=== PATIENT | male | born 1975 | race African-American/Black ===

== ENCOUNTER 2018-12-23 15:21 | Inpatient (IN) | payer OTHER ==
[2018-12-23 21:13] VITALS: BMI 25.0
--- NOTE | 2018-12-23 21:52 | HP ---
CIWA Score - Admission Criteria OASAS Guidelines: Admission for Medically Managed Detox: Requires at least one of the followin. CIWA greater than 12 2. Seizures within the past 24 hours 3. Delirium tremens within the past 24 hours 4. Hallucinations within the past 24 hours 5. Acute intervention needed for co occurring medical disorder 6. Acute intervention needed for co occurring psychiatric disorder 7. Severe withdrawal that cannot be handled at a lower level of care (continued vomiting, continued diarrhea, abnormal vital signs) requiring intravenous medication and/or fluids 8. Admission ROS S - HPI Chief Complaint: Seeking admission to Rehab Allergies/Adverse Reactions: Allergies Allergy/AdvReac Type Severity Reaction Status Date / Time No Known Allergies Allergy Verified 12/23/18 21:01 History of Present Illness: 43 years old male with a history of Percocet, cocaine and marijuana dependence is seeking admission to Rehab. This is his first inpatient admission to Rehab. Patient denies past medical history and denies suicidal ideation at this time. Exam Limitations: No Limitations - Ebola screening Have you traveled outside of the country in the last 21 days: No (N) Have you had contact with anyone from an Ebola affected area: No Do you have a fever: No - Review of Systems Constitutional: No Symptoms Reported EENT: reports: No Symptoms Reported Respiratory: reports: No Symptoms reported Cardiac: reports: No Symptoms Reported GI: reports: No Symptoms Reported : reports: No Symptoms Reported Musculoskeletal: reports: No Symptoms Reported Integumentary: reports: No Symptoms Reported Neuro: reports: No Symptoms reported Endocrine: reports: No Symptoms Reported Hematology: reports: No Symptoms Reported Psychiatric: reports: Mood/Affect Appropiate, Orientated x3 Other Systems: Reviewed and Negative Patient History - Patient Medical History Hx Anemia: No Hx Asthma: No Hx Chronic Obstructive Pulmonary Disease (COPD): No Hx Cancer: No Hx Cardiac Disorders: No Hx Congestive Heart Failure: No Hx Hypertension: No Hx Hypercholesterolemia: No Hx Pacemaker: No HX Cerebrovascular Accident: No Hx Seizures: No Hx Dementia: No Hx Diabetes: No Hx Gastrointestinal Disorders: No Hx Liver Disease: No Hx Genitourinary Disorders: No Hx Sexually Transmitted Disorders: No Hx Renal Disease (ESRD): No Hx Thyroid Disease: No Hx Human Immunodeficiency Virus (HIV): No (Negative December 2018) Hx Hepatitis C: No Hx Depression: Yes (Zoloft) Hx Suicide Attempt: No (Denies suicidl ideation at this time) Hx Bipolar Disorder: Yes (Zoloft) Other Medical History: Anxiety - Xanax - Patient Surgical History Past Surgical History: No - PPD History Previous Implant?: No Documented Results: Negative w/o proof Implanted On Prior R Admission?: Yes PPD to be Administered?: Yes - Reproductive History Patient is a Female of Child Bearing Age (11 -55 yrs old): No (Male) - Smoking Cessation Smoking history: Current every day smoker Have you smoked in the past 12 months: Yes Aproximately how many cigarettes per day: 10 Hx Chewing Tobacco Use: No Initiated information on smoking cessation: Yes 'Breaking Loose' booklet given: 12/23/18 - Substance & Tx. History Hx Alcohol Use: No Hx Substance Use: Yes Substance Use Type: Cocaine, Opiates Hx Substance Use Treatment: No ([id number]) - Substances abused Cocaine Substance route: Inhalation Frequency: 1-3 times last 30 days Amount used: 2-3 grams Age of first use: 22 Date of last use: 12/16/18 Marijuana/Hashish Substance route: Smoking Frequency: Daily Amount used: 4-5 blunts daily Age of first use: 17 Date of last use: 12/22/18 Other Other (specify): percocet Substance route: Oral Frequency: 1-2 times per week Amount used: 3-4 pills when used Age of first use: 31 Date of last use: 12/19/18 Family Disease History - Family Disease History Family History: Denies Admission Physical Exam [facility] - Vital Signs Vital Signs: Vital Signs - 24 hr 12/23/18 20:56 Temperature 98.4 F Pulse Rate 81 Respiratory 20 Rate Blood Pressure 140/78 - Physical General Appearance: Yes: No Apparent Distress, Nourished, Appropriately Dressed HEENTM: Yes: Normal ENT Inspection, Normocephalic, Normal Voice, [place]ON[place] Respiratory: Yes: Lungs Clear, Normal Breath Sounds, No Respiratory Distress Neck: Yes: Within Normal Limits Breast: Yes: Breast Exam Deferred Cardiology: Yes: Regular Rhythm, Regular Rate Abdominal: Yes: Normal Bowel Sounds, Soft Genitourinary: Yes: Within Normal Limits Back: Yes: Normal Inspection Musculoskeletal: Yes: Within Normal Limits Extremities: Yes: Normal Inspection 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 intact, Alert, Normal Mood/Affect Integumentary: Yes: Warm Lymphatic: Yes: Within Normal Limits - Diagnostic (1) Nicotine dependence Current Visit: Yes Status: Chronic Qualifiers: Nicotine product type: cigarettes Substance use status: uncomplicated Qualified Code(s): F17.210 - Nicotine dependence, cigarettes, uncomplicated (2) Cocaine dependence Current Visit: Yes Status: Chronic Qualifiers: Substance use status: uncomplicated Qualified Code(s): F14.20 - Cocaine dependence, uncomplicated (3) Opioid dependence Current Visit: Yes Status: Chronic Qualifiers: Complication of substance-induced condition: uncomplicated (4) Marijuana dependence Current Visit: Yes Status: Chronic Cleared for Admission S - Detox or Rehab [facility] Level of Care: Observation Bed Claeared for Rehab Admission: Yes Breathalyzer - Breathalyzer Breathalyzer: 0 Urine Drug Screen - Test Device Lot number: [id number] Expiration date: 11/08/19 - Control Is test valid?: Yes - Results Drug screen NEGATIVE: No Urine drug screen results: THC-Marijuana Inpatient Rehab Admission - Rehab Decision to Admit Inpatient rehab admission?: Yes - Initial Determination Are CD services needed?: No Free of communicable disease: Yes Not in need of hospitalization: Yes - Rehab Admission Criteria Previous failed treatment: Yes Poor recovery environment: Yes Comorbidities: Yes Lacks judgement: No Patient is meeting Inpatient Rehab admission criteria:: Yes
[2018-12-23] MEDS ORDERED: MENTHOL/PHENOL 1 EACH UD MM PRN (22:03)
[2018-12-23] MEDS ORDERED: MAGNESIUM HYDROX 2400MG/30ML ORAL SUSPENSION 30 ML CUP PO PRN (22:03)
[2018-12-23] MEDS ORDERED: IBUPROFEN 400 MG TABLET (FP) PO PRN (22:03)
[2018-12-23] MEDS ORDERED: LOPERAMIDE HCL 2 MG CAPSULE PO PRN (22:03)
[2018-12-23] MEDS ORDERED: ACETAMINOPHEN 325 MG TABLET (FP) PO PRN (22:03)
[2018-12-23] MEDS ORDERED: guaiFENesin 200 MG/10 ML 10 ML UNIT-DOSE CUPS PO PRN (22:03)
[2018-12-23] MEDS ORDERED: P-EPHED 60MG/TRIPROLIDI 2.5MG TABLET PO PRN (22:03)
[2018-12-23] MEDS ORDERED: MAGNESIUM CITRATE 300 ML BOTTLE PO PRN (22:03)
[2018-12-23] MEDS ORDERED: TUBERCULIN PPD 5 TU/0.1ML VIAL ID ONE (22:51)
[2018-12-23] MEDS: MELATONIN 5 MG TABLETS PO PRN (23:21)
[2018-12-24] MEDS: NICOTINE 14 MG/24 HOURS TOPICAL PATCH TD SCH (10:10)
[2018-12-24] MEDS: PRENATAL VITAMINS W/ FOLIC ACID TABLET (FP) PO SCH (10:10)
[2018-12-24 12:32] LABS: ALBUMIN 3.7 g/dl (3.4-5.0); BILIRUBIN,TOTAL 0.5 mg/dL (0.2-1); CALCIUM 9.1 mg/dL (8.5-10.1); CREATININE 1.1 mg/dL (0.55-1.3); POTASSIUM 4.4 mmol/L (3.5-5.1); TOT PROT 6.6 g/dl (6.4-8.2)
[2018-12-24 12:36] LABS: PH,URINE 8.5 (5.0-8.0); URINE APPEARANCE CLEAR; URINE BILIRUBIN NEGATIVE (NEGATIVE); URINE COLOR YELLOW; URINE GLUCOSE (UA) NEGATIVE (NEGATIVE); URINE KETONE NEGATIVE (NEGATIVE); URINE LEUK ESTERASE NEGATIVE (NEGATIVE); URINE NITRITE NEGATIVE (NEGATIVE); URINE PROTEIN NEGATIVE (NEGATIVE)
[2018-12-24 13:09] LABS: HEMOGLOBIN 12.5 GM/dL (11.7-16.9); MCH 32.8 pg (25.7-33.7); MCHC 32.9 g/dl (32.0-35.9); MEAN CELL VOLUME 99.7 fl (80-96); MEAN PLT VOLUME 8.4 fl (7.5-11.1); PLATELET COUNT 281 K/MM3 (134-434); RBC 3.82 M/mm3 (4.00-5.60); RDW 13.4 % (11.9-15.9); WHITE BLOOD COUNT 6.1 K/mm3 (4.0-10.0)
--- NOTE | 2018-12-24 14:20 | CONSULT ---
[facility] Psychiatric Consult - Data Date of interview: 12/24/18 Admission source: [facility] Identifying data: Patient is a 43 year old single male, father of three, unemployed, domiciled, and is supported by food stamps. This is patient's first admission to rehab at [facility]. Patient admitted to for opiate, marijuana, and cocaine dependence. Substance Abuse History: - Smoking Cessation. Smoking history: Current every day smoker. Have you smoked in the past 12 months: Yes. Aproximately how many cigarettes per day: 10. Hx Chewing Tobacco Use: No. Initiated information on smoking cessation: Yes. 'Breaking Loose' booklet given: 12/23/18. - Substance & Tx. History. Hx Alcohol Use: No. Hx Substance Use: Yes. Substance Use Type : Cocaine, Opiates. Hx Substance Use Treatment: No ([id number]). - Substances abused. Cocaine. Substance route: Inhalation. Frequency: 1-3 times last 30 days. Amount used: 2-3 grams. Age of first use: 22. Date of last use: 03/29. Marijuana/Hashish. Substance route: Smoking. Frequency: Daily. Amount used: 4-5 blunts daily. Age of first use: 17. Date of last use: . Other. Other (specify): percocet. Substance route: Oral. Frequency: 1 -2 times per week. Amount used: 3-4 pills when used. Age of first use: 31. Date of last use: 12/19/18 Medical History: Unremarkable Psychiatric History: Patient's first psychiatric contact was in October of 2018 after he was encouraged by his therapist to see a psychiatrist due to psychosocial factors of being a single parent and moving to [facility] with his two children from [facility]. He was started on lexapro 20mg and xanax 0.5mg as needed. Mr. Camilo discontinued lexapro after one month due to the medication being ineffective and subsequently admitted himself to [facility] psychiatric unit after reporting amotivaton, hopelessness, and continously using illicit substances. He was admitted for five days and prescribed zoloft 75mg. He continues to accept zoloft today. He denies current outpatient psychiatric care but states that he plans on returning to see his previous psychiatrist that is located in [place]. At present he reports stable mood. Physical/Sexual Abuse/Trauma History: denies. Mental Status Exam - Mental Status Exam Alert and Oriented to: Time, Place, Person Cognitive Function: Good Patient Appearance: Well Groomed Mood: Euthymic Affect: Appropriate Patient Behavior: Cooperative Speech Pattern: Appropriate Voice Loudness: Normal Thought Process: Goal Oriented Thought Disorder: Not Present Hallucinations: Denies Suicidal Ideation: Denies Homicidal Ideation: Denies Insight/Judgement: Poor Sleep: Poorly Appetite: Fair Muscle strength/Tone: Normal Gait/Station: Normal Psychiatric Findings - Problem List ([place] 1, 2,3) (1) Depressive disorder Current Visit: Yes Status: Chronic (2) Cocaine dependence Current Visit: Yes Status: Chronic Qualifiers: Substance use status: uncomplicated Qualified Code(s): F14.20 - Cocaine dependence, uncomplicated (3) Marijuana dependence Current Visit: Yes Status: Chronic (4) Nicotine dependence Current Visit: Yes Status: Chronic Qualifiers: Nicotine product type: cigarettes Substance use status: uncomplicated Qualified Code(s): F17.210 - Nicotine dependence, cigarettes, uncomplicated (5) Opioid dependence Current Visit: Yes Status: Chronic Qualifiers: Complication of substance-induced condition: uncomplicated - Initial Treatment Plan Initial Treatment Plan: Psychoeducation provided. Rehab in progress. Will order Zoloft 75mg daily. Benefits and side effects discussed. Verbal consent given.
--- NOTE | 2018-12-24 14:31 | EKG ---
Test Reason : Blood Pressure : / mmHG Vent. Rate : 075 BPM Atrial Rate : 075 BPM P-R Int : 178 ms QRS Dur : 102 ms QT Int : 368 ms P-R-T Axes : 072 063 049 degrees QTc Int : 410 ms NORMAL SINUS RHYTHM NORMAL ECG NO PREVIOUS ECGS AVAILABLE Confirmed by AMBERLY LOPEZ MD ([id number]) on 12/24/2018 2:31:00 PM Referred By: Confirmed By:AMBERLY LOPEZ MD
[2018-12-24] MEDS: THIAMINE HCL 100 MG TABLET (FP) PO SCH (21:02)
[2018-12-24] MEDS: MELATONIN 5 MG TABLETS PO PRN (21:02)
[2018-12-25] MEDS: PRENATAL VITAMINS W/ FOLIC ACID TABLET (FP) PO SCH (09:58)
[2018-12-25] MEDS: NICOTINE 14 MG/24 HOURS TOPICAL PATCH TD SCH (09:58)
[2018-12-25] MEDS: SERTRALINE HCL 25 MG TABLET (FP) PO SCH (09:58)
[2018-12-25] MEDS: THIAMINE HCL 100 MG TABLET (FP) PO SCH (21:04)
[2018-12-25] MEDS: MELATONIN 5 MG TABLETS PO PRN (21:05)
[2018-12-26] MEDS: SERTRALINE HCL 25 MG TABLET (FP) PO SCH (09:37)
[2018-12-26] MEDS: PRENATAL VITAMINS W/ FOLIC ACID TABLET (FP) PO SCH (09:38)
[2018-12-26] MEDS: NICOTINE 14 MG/24 HOURS TOPICAL PATCH TD SCH (09:38)
[2018-12-26] MEDS: THIAMINE HCL 100 MG TABLET (FP) PO SCH (21:31)
[2018-12-26] MEDS: MELATONIN 5 MG TABLETS PO PRN (21:32)
[2018-12-27] MEDS: NICOTINE 14 MG/24 HOURS TOPICAL PATCH TD SCH (09:32)
[2018-12-27] MEDS: PRENATAL VITAMINS W/ FOLIC ACID TABLET (FP) PO SCH (09:32)
[2018-12-27] MEDS: NICOTINE POLACRILEX 2 MG GUM BC PRN (09:33)
[2018-12-27] MEDS: SERTRALINE HCL 25 MG TABLET (FP) PO SCH (09:33)
[2018-12-27] MEDS: THIAMINE HCL 100 MG TABLET (FP) PO SCH (21:04)
[2018-12-27] MEDS: MELATONIN 5 MG TABLETS PO PRN (21:04)
[2018-12-27] MEDS: hydrOXYzine PAMOATE 50 MG CAPSULE (FP) PO PRN (23:22)
[2018-12-28] MEDS: NICOTINE 14 MG/24 HOURS TOPICAL PATCH TD SCH (09:54)
[2018-12-28] MEDS: SERTRALINE HCL 25 MG TABLET (FP) PO SCH (09:55)
[2018-12-28] MEDS: PRENATAL VITAMINS W/ FOLIC ACID TABLET (FP) PO SCH (09:55)
[2018-12-28] MEDS: NICOTINE POLACRILEX 2 MG GUM BC PRN ×2 (09:56→19:04)
--- NOTE | 2018-12-28 14:07 | PN ---
S Progress Note Note: Patient c/o insomnia and inability to sleep x 3 nights despite Melatonin. Will order Belsoma 10mg hs prn and monitor clinically. Vital Signs Temperature 98.1 F 12/28/18 07:17 Pulse Rate 55 L 12/28/18 07:17 Respiratory Rate 18 12/28/18 07:17 Blood Pressure 128/91 12/28/18 07:17 O2 Sat by Pulse Oximetry (%)
[2018-12-28] MEDS: THIAMINE HCL 100 MG TABLET (FP) PO SCH (21:11)
[2018-12-28] MEDS: SUVOREXANT 10 MG TABLET PO PRN (21:11)
[2018-12-29] MEDS: PRENATAL VITAMINS W/ FOLIC ACID TABLET (FP) PO SCH (09:49)
[2018-12-29] MEDS: SERTRALINE HCL 25 MG TABLET (FP) PO SCH (09:49)
[2018-12-29] MEDS: NICOTINE 14 MG/24 HOURS TOPICAL PATCH TD SCH (09:49)
[2018-12-29] MEDS: SUVOREXANT 10 MG TABLET PO PRN (21:10)
[2018-12-29] MEDS: THIAMINE HCL 100 MG TABLET (FP) PO SCH (21:10)
[2018-12-30] MEDS ORDERED: PT OWN MED DRAWER 7, Y5N ONE (08:39)
[2018-12-30] MEDS: PRENATAL VITAMINS W/ FOLIC ACID TABLET (FP) PO SCH (09:43)
[2018-12-30] MEDS: SERTRALINE HCL 25 MG TABLET (FP) PO SCH (09:43)
[2018-12-30] MEDS: NICOTINE 14 MG/24 HOURS TOPICAL PATCH TD SCH (09:43)
[2018-12-30] MEDS: NICOTINE POLACRILEX 2 MG GUM BC PRN (17:15)
[2018-12-30] MEDS: SUVOREXANT 10 MG TABLET PO PRN (21:08)
[2018-12-30] MEDS: THIAMINE HCL 100 MG TABLET (FP) PO SCH (21:09)
[2018-12-31] MEDS ORDERED: PT OWN MED DRAWER 7, Y5N ONE (09:01)
[2018-12-31] MEDS: SERTRALINE HCL 25 MG TABLET (FP) PO SCH (10:10)
[2018-12-31] MEDS: NICOTINE POLACRILEX 2 MG GUM BC PRN (10:10)
[2018-12-31] MEDS: NICOTINE 14 MG/24 HOURS TOPICAL PATCH TD SCH (10:10)
[2018-12-31] MEDS: PRENATAL VITAMINS W/ FOLIC ACID TABLET (FP) PO SCH (10:10)
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
[2018-12-31] MEDS: METHYL SALICYLATE/MENTHOL OINT 30 GM TUBE TP SCH ×2 (14:05→22:10)
[2018-12-31] MEDS: METHOCARBAMOL 500 MG TABLET PO SCH ×2 (14:05→22:07)
[2018-12-31] MEDS: THIAMINE HCL 100 MG TABLET (FP) PO SCH (22:07)
[2018-12-31] MEDS: SUVOREXANT 10 MG TABLET PO PRN (22:09)
[2018-12-31] MEDS: hydrOXYzine PAMOATE 50 MG CAPSULE (FP) PO PRN (22:09)
[2019-01-01] MEDS: METHOCARBAMOL 500 MG TABLET PO SCH ×3 (06:12→21:08)
[2019-01-01] MEDS: PRENATAL VITAMINS W/ FOLIC ACID TABLET (FP) PO SCH (09:34)
[2019-01-01] MEDS: SERTRALINE HCL 25 MG TABLET (FP) PO SCH (09:34)
[2019-01-01] MEDS: NICOTINE 14 MG/24 HOURS TOPICAL PATCH TD SCH (09:34)
[2019-01-01] MEDS: METHYL SALICYLATE/MENTHOL OINT 30 GM TUBE TP SCH ×2 (09:34→21:08)
[2019-01-01] MEDS: NICOTINE POLACRILEX 2 MG GUM BC PRN (09:35)
[2019-01-01] MEDS: hydrOXYzine PAMOATE 50 MG CAPSULE (FP) PO PRN (21:08)
[2019-01-01] MEDS: THIAMINE HCL 100 MG TABLET (FP) PO SCH (21:08)
[2019-01-01] MEDS: SUVOREXANT 10 MG TABLET PO PRN (21:08)
[2019-01-02] MEDS: METHOCARBAMOL 500 MG TABLET PO SCH ×3 (06:01→22:02)
[2019-01-02] MEDS: SERTRALINE HCL 25 MG TABLET (FP) PO SCH (09:39)
[2019-01-02] MEDS: NICOTINE 14 MG/24 HOURS TOPICAL PATCH TD SCH (09:39)
[2019-01-02] MEDS: PRENATAL VITAMINS W/ FOLIC ACID TABLET (FP) PO SCH (09:39)
[2019-01-02] MEDS: NICOTINE POLACRILEX 2 MG GUM BC PRN (09:41)
[2019-01-02] MEDS: METHYL SALICYLATE/MENTHOL OINT 30 GM TUBE TP SCH ×2 (10:26→22:01)
[2019-01-02] MEDS: THIAMINE HCL 100 MG TABLET (FP) PO SCH (22:01)
[2019-01-02] MEDS: hydrOXYzine PAMOATE 50 MG CAPSULE (FP) PO PRN (22:04)
[2019-01-03] MEDS: METHOCARBAMOL 500 MG TABLET PO SCH ×3 (05:50→21:17)
[2019-01-03] MEDS: SERTRALINE HCL 25 MG TABLET (FP) PO SCH (09:42)
[2019-01-03] MEDS: NICOTINE 14 MG/24 HOURS TOPICAL PATCH TD SCH (09:42)
[2019-01-03] MEDS: PRENATAL VITAMINS W/ FOLIC ACID TABLET (FP) PO SCH (09:42)
[2019-01-03] MEDS: NICOTINE POLACRILEX 2 MG GUM BC PRN (09:45)
[2019-01-03] MEDS: METHYL SALICYLATE/MENTHOL OINT 30 GM TUBE TP SCH ×2 (09:45→22:00)
[2019-01-03] MEDS: MAG HYDROX/AL HYDROX/SIMETH 30 ML UNIT-DOSE CUP PO PRN (13:01)
[2019-01-03] MEDS: hydrOXYzine PAMOATE 50 MG CAPSULE (FP) PO PRN (21:17)
[2019-01-03] MEDS: THIAMINE HCL 100 MG TABLET (FP) PO SCH (21:17)
[2019-01-03] MEDS: SUVOREXANT 10 MG TABLET PO PRN (21:17)
[2019-01-04] MEDS: METHOCARBAMOL 500 MG TABLET PO SCH ×3 (06:05→21:38)
--- NOTE | 2019-01-04 09:08 | PN ---
[facility] Progress Note Note: Patient c/o indigestion and flatulence. Denies N/V/D and fever. PE: alert and oriented x 3 skin warm and dry GI NT, ND ext amb ad ny a/p indigestion will order pepto-bismul 30cc daily monitor clinically
[2019-01-04] MEDS: PRENATAL VITAMINS W/ FOLIC ACID TABLET (FP) PO SCH (09:29)
[2019-01-04] MEDS: BISMUTH SUBSALICYLATE 262 MG/15 ML BTL PO SCH (09:29)
[2019-01-04] MEDS: SERTRALINE HCL 25 MG TABLET (FP) PO SCH (09:30)
[2019-01-04] MEDS: METHYL SALICYLATE/MENTHOL OINT 30 GM TUBE TP SCH ×2 (09:30→21:43)
[2019-01-04] MEDS: NICOTINE 14 MG/24 HOURS TOPICAL PATCH TD SCH (09:30)
[2019-01-04] MEDS: NICOTINE POLACRILEX 2 MG GUM BC PRN (09:33)
[2019-01-04] MEDS: THIAMINE HCL 100 MG TABLET (FP) PO SCH (21:38)
[2019-01-04] MEDS: hydrOXYzine PAMOATE 50 MG CAPSULE (FP) PO PRN (21:39)
[2019-01-05] MEDS: METHOCARBAMOL 500 MG TABLET PO SCH ×3 (06:16→21:12)
[2019-01-05] MEDS: PRENATAL VITAMINS W/ FOLIC ACID TABLET (FP) PO SCH (09:39)
[2019-01-05] MEDS: SERTRALINE HCL 25 MG TABLET (FP) PO SCH (09:39)
[2019-01-05] MEDS: METHYL SALICYLATE/MENTHOL OINT 30 GM TUBE TP SCH ×2 (09:39→21:13)
[2019-01-05] MEDS: NICOTINE 14 MG/24 HOURS TOPICAL PATCH TD SCH (09:39)
[2019-01-05] MEDS: NICOTINE POLACRILEX 2 MG GUM BC PRN (09:40)
[2019-01-05] MEDS: BISMUTH SUBSALICYLATE 262 MG/15 ML BTL PO SCH (09:42)
[2019-01-05] MEDS: hydrOXYzine PAMOATE 50 MG CAPSULE (FP) PO PRN (21:12)
[2019-01-05] MEDS: THIAMINE HCL 100 MG TABLET (FP) PO SCH (21:12)
[2019-01-06] MEDS: METHOCARBAMOL 500 MG TABLET PO SCH ×3 (06:04→21:32)
[2019-01-06] MEDS: SERTRALINE HCL 25 MG TABLET (FP) PO SCH (09:44)
[2019-01-06] MEDS: NICOTINE 14 MG/24 HOURS TOPICAL PATCH TD SCH (09:44)
[2019-01-06] MEDS: PRENATAL VITAMINS W/ FOLIC ACID TABLET (FP) PO SCH (09:44)
[2019-01-06] MEDS: NICOTINE POLACRILEX 2 MG GUM BC PRN (09:46)
[2019-01-06] MEDS: BISMUTH SUBSALICYLATE 262 MG/15 ML BTL PO SCH (09:46)
[2019-01-06] MEDS: METHYL SALICYLATE/MENTHOL OINT 30 GM TUBE TP SCH ×2 (09:47→21:32)
[2019-01-06] MEDS: THIAMINE HCL 100 MG TABLET (FP) PO SCH (21:32)
[2019-01-06] MEDS: hydrOXYzine PAMOATE 50 MG CAPSULE (FP) PO PRN (21:33)
[2019-01-07] MEDS: METHOCARBAMOL 500 MG TABLET PO SCH ×3 (06:01→21:14)
[2019-01-07] MEDS: METHYL SALICYLATE/MENTHOL OINT 30 GM TUBE TP SCH ×2 (09:38→21:15)
[2019-01-07] MEDS: PRENATAL VITAMINS W/ FOLIC ACID TABLET (FP) PO SCH (09:38)
[2019-01-07] MEDS: SERTRALINE HCL 25 MG TABLET (FP) PO SCH (09:39)
[2019-01-07] MEDS: BISMUTH SUBSALICYLATE 262 MG/15 ML BTL PO SCH (09:39)
[2019-01-07] MEDS: NICOTINE 14 MG/24 HOURS TOPICAL PATCH TD SCH (09:39)
[2019-01-07] MEDS: NICOTINE POLACRILEX 2 MG GUM BC PRN (09:41)
[2019-01-07] MEDS: THIAMINE HCL 100 MG TABLET (FP) PO SCH (21:14)
[2019-01-07] MEDS: hydrOXYzine PAMOATE 50 MG CAPSULE (FP) PO PRN (21:15)
[2019-01-08] MEDS: METHOCARBAMOL 500 MG TABLET PO SCH ×3 (05:49→21:34)
[2019-01-08] MEDS: SERTRALINE HCL 25 MG TABLET (FP) PO SCH (09:40)
[2019-01-08] MEDS: NICOTINE 14 MG/24 HOURS TOPICAL PATCH TD SCH (09:40)
[2019-01-08] MEDS: PRENATAL VITAMINS W/ FOLIC ACID TABLET (FP) PO SCH (09:41)
[2019-01-08] MEDS: BISMUTH SUBSALICYLATE 262 MG/15 ML BTL PO SCH (09:41)
[2019-01-08] MEDS: METHYL SALICYLATE/MENTHOL OINT 30 GM TUBE TP SCH ×2 (09:43→21:35)
[2019-01-08] MEDS: THIAMINE HCL 100 MG TABLET (FP) PO SCH (21:34)
[2019-01-08] MEDS: hydrOXYzine PAMOATE 50 MG CAPSULE (FP) PO PRN (21:34)
[2019-01-09] MEDS: METHOCARBAMOL 500 MG TABLET PO SCH ×3 (06:48→21:13)
[2019-01-09] MEDS: PRENATAL VITAMINS W/ FOLIC ACID TABLET (FP) PO SCH (09:26)
[2019-01-09] MEDS: SERTRALINE HCL 25 MG TABLET (FP) PO SCH (09:26)
[2019-01-09] MEDS: NICOTINE 14 MG/24 HOURS TOPICAL PATCH TD SCH (09:27)
[2019-01-09] MEDS: METHYL SALICYLATE/MENTHOL OINT 30 GM TUBE TP SCH ×2 (09:27→21:13)
[2019-01-09] MEDS: NICOTINE POLACRILEX 2 MG GUM BC PRN ×2 (09:28→22:39)
[2019-01-09] MEDS: BISMUTH SUBSALICYLATE 262 MG/15 ML BTL PO SCH (10:11)
[2019-01-09] MEDS: MAG HYDROX/AL HYDROX/SIMETH 30 ML UNIT-DOSE CUP PO PRN (15:12)
[2019-01-09] MEDS: THIAMINE HCL 100 MG TABLET (FP) PO SCH (21:13)
[2019-01-10] MEDS: METHOCARBAMOL 500 MG TABLET PO SCH ×3 (06:13→21:35)
[2019-01-10] MEDS: PRENATAL VITAMINS W/ FOLIC ACID TABLET (FP) PO SCH (09:39)
[2019-01-10] MEDS: SERTRALINE HCL 25 MG TABLET (FP) PO SCH (09:39)
[2019-01-10] MEDS: BISMUTH SUBSALICYLATE 262 MG/15 ML BTL PO SCH (09:39)
[2019-01-10] MEDS: NICOTINE 14 MG/24 HOURS TOPICAL PATCH TD SCH (09:39)
[2019-01-10] MEDS: METHYL SALICYLATE/MENTHOL OINT 30 GM TUBE TP SCH ×2 (09:40→21:39)
[2019-01-10] MEDS: NICOTINE POLACRILEX 2 MG GUM BC PRN (19:45)
[2019-01-10] MEDS: THIAMINE HCL 100 MG TABLET (FP) PO SCH (21:35)
[2019-01-10] MEDS: hydrOXYzine PAMOATE 50 MG CAPSULE (FP) PO PRN (21:36)
[2019-01-11] MEDS: METHOCARBAMOL 500 MG TABLET PO SCH ×3 (06:13→21:03)
[2019-01-11] MEDS: PRENATAL VITAMINS W/ FOLIC ACID TABLET (FP) PO SCH (09:36)
[2019-01-11] MEDS: NICOTINE 14 MG/24 HOURS TOPICAL PATCH TD SCH (09:36)
[2019-01-11] MEDS: SERTRALINE HCL 25 MG TABLET (FP) PO SCH (09:36)
[2019-01-11] MEDS: BISMUTH SUBSALICYLATE 262 MG/15 ML BTL PO SCH (09:37)
[2019-01-11] MEDS: METHYL SALICYLATE/MENTHOL OINT 30 GM TUBE TP SCH ×2 (09:37→21:03)
[2019-01-11] MEDS: THIAMINE HCL 100 MG TABLET (FP) PO SCH (21:02)
[2019-01-11] MEDS: hydrOXYzine PAMOATE 50 MG CAPSULE (FP) PO PRN (21:03)
[2019-01-12] MEDS: METHOCARBAMOL 500 MG TABLET PO SCH ×3 (06:10→21:52)
[2019-01-12] MEDS: PRENATAL VITAMINS W/ FOLIC ACID TABLET (FP) PO SCH (09:40)
[2019-01-12] MEDS: SERTRALINE HCL 25 MG TABLET (FP) PO SCH (09:41)
[2019-01-12] MEDS: NICOTINE 14 MG/24 HOURS TOPICAL PATCH TD SCH (09:41)
[2019-01-12] MEDS: BISMUTH SUBSALICYLATE 262 MG/15 ML BTL PO SCH (09:41)
[2019-01-12] MEDS: NICOTINE POLACRILEX 2 MG GUM BC PRN (09:41)
[2019-01-12] MEDS: METHYL SALICYLATE/MENTHOL OINT 30 GM TUBE TP SCH ×2 (09:41→21:53)
--- NOTE | 2019-01-12 09:41 | PN ---
[facility] Progress Note (SOAP) Subjective: Patient to be discharged tomorrow. Objective: A+O x3, no neurological deficits noted, heart sounds regular, lungs clear, abd soft, non-tender, non-distended, +BS. 01/12/19 09:39 CBC, BMP 12/24/18 08:35 12/24/18 08:35 Vital Signs (72 hours) 01/10/19 01/10/19 01/10/19 00:30 03:30 06:51 Temperature 97.8 F Pulse Rate 66 Respiratory 18 18 18 Rate Blood Pressure 131/89 01/11/19 01/11/19 01/11/19 00:30 03:30 06:35 Temperature 98.2 F Pulse Rate 75 Respiratory 18 18 18 Rate Blood Pressure 142/88 01/12/19 01/12/19 01/12/19 00:30 03:30 06:24 Temperature 97.9 F Pulse Rate 64 Respiratory 18 18 18 Rate Blood Pressure 130/91 Assessment: Medically stable for discharge at this time. Discharge dx: Opioid dependence Cocaine Dependence Marijuana dependence 01/12/19 09:39 Plan: Patient will receive aftercare at [facility]. Receives medical care from a provider in [place], at this time patient does not remember the name. Patient does not need medications transcribed to pharmacy.
--- NOTE | 2019-01-12 11:46 | PN ---
S Progress Note Note: Patient is scheduled for discharge tomorrow. Script for 30 days supply of Zoloft 75 mg/day will be electronically transmitted to [facility] at [address] [place] [address], [place] [address]
[2019-01-12] MEDS: hydrOXYzine PAMOATE 50 MG CAPSULE (FP) PO PRN (21:52)
[2019-01-12] MEDS: THIAMINE HCL 100 MG TABLET (FP) PO SCH (21:52)
[2019-01-13] MEDS: METHOCARBAMOL 500 MG TABLET PO SCH (06:04)
[2019-01-13 06:17] VITALS: BP 142/86; PULSE 71; TEMP 97.7
[2019-01-13] MEDS: PRENATAL VITAMINS W/ FOLIC ACID TABLET (FP) PO SCH (09:40)
[2019-01-13] MEDS: SERTRALINE HCL 25 MG TABLET (FP) PO SCH (09:40)
[2019-01-13] MEDS: NICOTINE 14 MG/24 HOURS TOPICAL PATCH TD SCH (09:41)
[2019-01-13] MEDS: BISMUTH SUBSALICYLATE 262 MG/15 ML BTL PO SCH (09:41)
[2019-01-13] MEDS: METHYL SALICYLATE/MENTHOL OINT 30 GM TUBE TP SCH (09:41)
== END 2019-01-13 09:42 | disposition home or self-care (01) | DRG 772 ==
LOC: YASAS 15:21 → Y3W 22:11
PROVIDERS: ADMIT Neuromusculoskeletal Medicine & OMM; ATTEND Neuromusculoskeletal Medicine & OMM
PROC: HZ42ZZZ Group Counseling for Substance Abuse Treatment, Cognitive-Behavioral (ICD-10-PCS; principal; 2018-12-23)
DX: F11.20 Opioid dependence, uncomplicated (principal); F14.20 Cocaine dependence, uncomplicated; F12.20 Cannabis dependence, uncomplicated; F17.210 Nicotine dependence, cigarettes, uncomplicated; F31.9 Bipolar disorder, unspecified; F41.9 Anxiety disorder, unspecified
CPT/HCPCS: 36415; 80053; 81003; 85027; 86593; 90853; 93005; 93010